=== PATIENT | female | born 1990 | race Caucasian/White ===

== ENCOUNTER 2023-10-25 19:43 | Emergency (ER) | payer BC, MEDICAID, SELFPAY ==
[2023-10-25 19:50] VITALS: BP 144/93; PULSE 85; RESP 17; TEMP 36.4; O2SAT 99; BMI 35.4
--- NOTE | 2023-10-25 20:01 | XRR_ITS ---
PROCEDURE INFORMATION: Exam: XR Chest Exam date and time: 10/25/2023 8:36 PM Age: 32 years old Clinical indication: Shortness of breath; Additional info: Shortness of brath TECHNIQUE: Imaging protocol: Radiologic exam of the chest. Views: 1 view. COMPARISON: No relevant prior studies available. FINDINGS: Lungs: Unremarkable. No consolidation. Pleural spaces: Unremarkable. No pleural effusion. No pneumothorax. Heart/Mediastinum: Unremarkable. No cardiomegaly. Bones/joints: Unremarkable. XR/XR chest 1V [id number] IMPRESSION: No acute findings.
[2023-10-25 20:02] VITALS: BP 127/93; BP 149/105; BP 157/103; PULSE 106; PULSE 130; PULSE 78
[2023-10-25 20:22] LABS: Basophils % 0.4 %; Eosinophils # 0.2 10^3/uL (0.0-0.8); Eosinophils % 1.5 %; Hematocrit 40.4 % (36-47); Lymphocytes # 4.1 10^3/uL (0.8-4.8); Lymphocytes % 39.1 %; Mean Corpuscular HGB Conc 34.7 g/dL (30-55); Mean Corpuscular Hemoglobin 31.5 pg (27-33); Mean Platelet Volume 9.3 fL (7.4-10.4); Monocytes # 0.7 10^3/uL (0.2-0.9); Monocytes % 6.9 %; Neutrophils # 5.37 10^3/uL (1.8-7.7); Neutrophils % 51.9 %; Nucleated Red Blood Cells % 0 %; Platelet Count 339 10^3/cmm (157-399); Red Blood Count 4.44 10^6/uL (3.85-5.65); Red Cell Distribution Width 12.2 % (12.1-15.1); White Blood Count 10.36 10^3/uL (3.29-11.43)
--- NOTE | 2023-10-25 20:29 | W.ED.SOB ---
HPI - SOB/Dyspnea General: Chief Complaint: Shortness of Breath/Dyspnea Stated Complaint: left jaw pain, sob, chest pains, nausea Time Seen by Provider: 10/25/23 19:56 History of Present Illness: HPI Narrative: 32-year-old female with history of anxiety and depression who presents to the emergency room with positional tachycardia and shortness of breath. She was worked up at [facility] and was told it might be her anxiety or a GI source. She says when she stands up her heart rate gets fast that she gets very short of breath. No fevers. No cough. Review of Systems Narrative: Constitutional symptoms: Negative except as documented in HPI. Skin symptoms: Negative except as documented in HPI. Eye symptoms: Negative except as documented in HPI. ENMT symptoms: Negative except as documented in HPI. Respiratory symptoms: Negative except as documented in HPI. Cardiovascular symptoms: Negative except as documented in HPI. Gastrointestinal symptoms: Negative except as documented in HPI. Genitourinary symptoms: Negative except as documented in HPI. Musculoskeletal symptoms: Negative except as documented in HPI. Neurologic symptoms: Negative except as documented in HPI. Psychiatric symptoms: Negative except as documented in HPI. Endocrine symptoms: Negative except as documented in HPI. [facility] ED PFSH: Medical History SVT (supraventricular tachycardia) Family History Other Cancer Diabetes Physical Exam Narrative: EXAM NARRATIVE: General: Alert, no acute distress. Skin: Warm, dry. Head: Normocephalic, atraumatic. Neck: Supple, trachea midline. Eye: Extraocular movements are intact. Ears, nose, mouth and throat: mucosa moist. Cardiovascular: Regular, Normal peripheral perfusion. Respiratory: Lungs are clear to auscultation, respirations are non-labored, breath sounds are equal, Symmetrical chest wall expansion. Gastrointestinal: Soft, Nontender, Non distended, Normal bowel sounds. Musculoskeletal: Normal ROM, no deformity. Neurological: Alert and oriented to person, place, time, and situation, No focal neurological deficit observed. Psychiatric: Cooperative, appropriate mood & affect. Course Vital Signs: Vital signs: Vital Signs Temperature 97.6 F 10/25/23 19:50 Pulse Rate 71 10/25/23 21:23 Respiratory Rate 15 10/25/23 21:23 Blood Pressure 100/83 10/25/23 21:23 Pulse Oximetry 98 10/25/23 21:23 Oxygen Delivery Me thod Room Air 10/25/23 20:54 MDM - SOB/Dyspnea Medical Decision Making Orthostatic vital signs were ordered as this sounds to be orthostasis. I reviewed lab work from [place]. Troponin was negative there. Her D-dimer was negative as well. So they have ruled out acute coronary syndrome although I did order a repeat troponin here. Also ruled out pulmonary embolism so we will not investigate that further. Her orthostatics are positive here. An liter of fluid was given. We discussed the findings at length and although there may be some component of anxiety I think mostly this is orthostasis. Lab Data 10/25/23 20:09 10/25/23 20:09 Labs/Radiology: Radiology Impressions Chest X-Ray 10/25/23 20:01 IMPRESSION: No acute findings. Laboratory Results WBC 10.36 10^3/uL (3.29-11.43) 10/25/23 20:09 RBC 4.44 10^6/uL (3.85-5.65) 10/25/23 20:09 Hgb 14.00 g/dL (11.27-16.99) 10/25/23 20:09 Hct 40.4 % (36-47) 10/25/23 20:09 MCV 91.0 fl (85-98) 10/25/23 20:09 MCH 31.5 pg (27-33) 10/25/23 20:09 MCHC 34.7 g/dL (30-55) 10/25/23 20:09 RDW 12.2 % (12.1-15.1) 10/25/23 20:09 Plt Count 339 10^3/cmm (157-399) 10/25/23 20:09 MPV 9.3 fL (7.4-10.4) 10/25/23 20:09 Neut % (Auto) 51.9 % 10/25/23 20:09 Lymph % (Auto) 39.1 % 10/25/23 20:09 Bryan % (Auto) 6.9 % 10/25/23 20:09 Eos % (Auto) 1.5 % 10/25/23 20:09 Baso % (Auto) 0.4 % 10/25/23 20:09 Neut # (Auto) 5.37 10^3/uL (1.8-7.7) 10/25/23 20:09 Lymph # (Auto) 4.1 10^3/uL (0.8-4.8) 10/25/23 20:09 Bryan # (Auto) 0.7 10^3/uL (0.2-0.9) 10/25/23 20:09 Eos # (Auto) 0.2 10^3/uL (0.0-0.8) 10/25/23 20:09 Baso # (Auto) 0.0 10^3/uL (0.0-0.1) 10/25/23 20:09 Nucleated RBC % (auto) 0 % 10/25/23 20:09 Nucleated RBCs # 0.0 /100WBC 10/25/23 20:09 Specimen Type Arterial 10/25/23 20:52 Sample Site Radial, right 10/25/23 20:52 ABG pH 7.48 (7.35-7.45) H 10/25/23 20:52 ABG pCO2 30.6 mmHg (35-45) L 10/25/23 20:52 ABG pO2 82.4 mmHg (80.0-100.0) 10/25/23 20:52 ABG HCO3 22.7 mmol/L (22-26) 10/25/23 20:52 ABG O2 Saturation 98.1 10/25/23 20:52 ABG Base Excess 0.0 mmol/L (-2.0-2.0) 10/25/23 20:52 Pietro Test Pos 10/25/23 20:52 A-a O2 Gradient 3.8 mmHg (5-10) L 10/25/23 20:52 Hematocrit 42.1 % (37-47) 10/25/23 20:52 Hgb O2 Saturation 91.2 % (95-100) L 10/25/23 20:52 Carboxyhemoglobin 6.6 %THgb (0.4-20.1) 10/25/23 20:52 Methemoglobin 0.5 % (0.4-1.5) 10/25/23 20:52 Total Hemoglobin 13.7 g/dL (12-16) 10/25/23 20:52 Sodium 140.0 mmol/L (131-143) 10/25/23 20:52 Potassium 3.6 mmol/L (3.5-5.0) 10/25/23 20:52 Glucose 84.0 mg/dL (70-115) 10/25/23 20:52 Ionized Calcium 1.2 mmol/L (1.1-1.4) 10/25/23 20:52 O2 Delivery Device Room air 10/25/23 20:52 Control Room Operator ID [email or web address] 10/25/23 20:52 Sodium 138 mmol/L (136-145) 10/25/23 20:09 Potassium 3.9 mmol/L (3.5-5.1) 10/25/23 20:09 Chloride 106 mmol/L (98-107) 10/25/23 20:09 Carbon Dioxide 22 mmol/L (22-29) 10/25/23 20:09 Anion Gap 13.9 (5-19) 10/25/23 20:09 BUN 9 mg/dL (6-20) 10/25/23 20:09 Creatinine 0.7 mg/dL (0.5-0.9) 10/25/23 20:09 GFR Calculation 97.0 mL/min (90-130) 10/25/23 20:09 Glucose 99 mg/dL (65-115) 10/25/23 20:09 Calculated Osmolality 285 mOsm/kg (285-295) 10/25/23 20:09 Calcium 9.8 mg/dL (8.5-10.5) 10/25/23 20:09 Total Bilirubin 0.3 mg/dL (0.15-1.2) 10/25/23 20:09 AST 25 U/L (0-32) 10/25/23 20:09 ALT 30 U/L (0-33) 10/25/23 20:09 Alkaline Phosphatase 71 U/L (35-105) 10/25/23 20:09 Troponin T Baseline < 6 ng/L (0-10) 10/25/23 20:09 C-Reactive Protein 3.6 mg/L (0.0-4.9) 10/25/23 20:09 Total Protein 6.3 g/dL (6.6-8.7) L 10/25/23 20:09 Albumin 4.0 g/dL (3.5-5.2) 10/25/23 20:09 Globulin 2.3 g/dL (1.3-4.6) 10/25/23 20:09 TSH 1.42 uIU/mL (0.27-4.20) 10/25/23 20:09 Influenza Type A Ag negative (Negative) 10/25/23 20:10 Influenza Type B Ag negative (Negative) 10/25/23 20:10 All radiology interpretation(s) finalized by discharge ED provider radiology interpretation(s): Chest x-ray: No acute process. No pneumothorax. No infiltrate. No cardiomegaly. This was reviewed and interpreted by myself the ER physician. EKG Data EKG 1: Other EKG Comments: EKG: Time 1948 PM rate 92 normal sinus rhythm, No ST-T changes, no ectopy, normal [place] & QRS intervals, This was reviewed and interpreted by myself the ER physician. Other Data - Likely orthostatic. Her heart rate does jump in the 130s when she stands up. Her blood pressure soft. Her hemoglobin is concentrated. TSH is within normal limits. Troponin is negative again here. Discharge Plan Discharge Patient Disposition: Home Clinical Impression: Orthostasis, Acute dehydration, Tachycardia Condition: Stable Prescriptions: No Action aspirin [Adult Aspirin Regimen] 81 mg tablet,delayed release (DR/EC) 81 mg PO DAILY metoprolol tartrate 25 mg tablet 12.5 mg PO BID Qty: 90 3RF cefdinir 300 mg capsule 300 mg PO Q12H lamotrigine [Lamictal] 100 mg tablet 100 mg PO DAILY duloxetine [Cymbalta] 60 mg capsule,delayed release(DR/EC) 60 mg PO BID prazosin 1 mg capsule 1 mg PO BID quetiapine [Seroquel] 50 mg tablet 50 mg PO DAILY clonazepam 1 mg tablet 1 mg PO DAILY Discharge Orders: Discharge ED (Routine); Ordered 10/25/23 Ordered By: Brenda Mathias Referrals: Chago Castellanos FNP [Primary Care Provider] - 4-7 days (You have been screened and evaluated and felt safe for discharge. Health conditions do change or evolve sometimes and as such it is important that you follow up with your Primary Doctor to be re checked, 3-5 days is a general good time frame for follow up. You are always welcome to return to the ED for re assessment if your symptoms are worsening or you have new concerns) Patient Instructions: Opioid Safety, Pain Management Coding Level of Care Code ED Customer Contact Sales Associate for Joao Prince
[2023-10-25 20:37] LABS: Influenza A by IFA negative (Negative); Influenza B by IFA negative (Negative)
[2023-10-25 20:39] LABS: Troponin(5th) Baseline < 6 ng/L (0-10)
[2023-10-25 20:46] LABS: Alanine Aminotransferase 30 U/L (0-33); Alkaline Phosphatase 71 U/L (35-105); Anion Gap 13.9 (5-19); Aspartate Amino Transferase 25 U/L (0-32); Blood Urea Nitrogen 9 mg/dL (6-20); C Reactive Protein 3.6 mg/L (0.0-4.9); Calcium 9.8 mg/dL (8.5-10.5); Carbon Dioxide 22 mmol/L (22-29); Chloride 106 mmol/L (98-107); Creatinine Clr Calc Pharmacy 123.3603; Globulin 2.3 g/dL (1.3-4.6); Glucose 99 mg/dL (65-115); Osmolality Calculated 285 mOsm/kg (285-295); Potassium 3.9 mmol/L (3.5-5.1); Sodium 138 mmol/L (136-145); Thyroid Stimulating Hormone 1.42 uIU/mL (0.27-4.20); Total Bilirubin 0.3 mg/dL (0.15-1.2); Total Protein 6.3 g/dL (6.6-8.7)
[2023-10-25] MEDS: sodium chloride 0.9% 1,000 ML 999 ML IV (20:49)
[2023-10-25 20:54] VITALS: BP 100/83; PULSE 78; RESP 26; O2SAT 96
[2023-10-25 21:03] LABS: ABG PCO2 30.6 mmHg (35-45); ABG PH Result 7.48 (7.35-7.45); Alveolar-Arterial Oxygen Gradi 3.8 mmHg (5-10); Arterial Blood Gas Hematocrit 42.1 % (37-47); Blood Gas Allen Test Pos; Blood Gas Sample Site Radial, right; Blood Gas Sample Type Arterial; Carboxyhemoglobin 6.6 %THgb (0.4-20.1); HCO3 ABG 22.7 mmol/L (22-26); HGB O2 Sat 91.2 % (95-100); Ionized Calcium Level - ABG 1.2 mmol/L (1.1-1.4); Methemoglobin 0.5 % (0.4-1.5); Oxygen Device ROOM AIR; Oxygen Saturation ABG 98.1; PO2 ABG 82.4 mmHg (80.0-100.0); Potassium Level - ABG 3.6 mmol/L (3.5-5.0); Total Hemoglobin 13.7 g/dL (12-16)
[2023-10-25 21:23] VITALS: BP 100/83; PULSE 71; RESP 15; O2SAT 98
[2023-10-25 22:03] LABS: Adenovirus Not Detected (NOT DETECT); Chlamydia Pneumoniae Not Detected (NOT DETECT); Coronavirus 229E,HKU1,NL63,OC4 Not Detected (NOT DETECT); Human Metapneumovirus Not Detected (NOT DETECT); Human Rhinovirus/Enterovirus Not Detected (NOT DETECT); Influenza A Not Detected (NOT DETECT); Influenza A H1 Not Detected (NOT DETECT); Influenza A H1-2009 Not Detected (NOT DETECT); Influenza A H3 Not Detected (NOT DETECT); Influenza B Not Detected (NOT DETECT); Mycoplasma Pneumoniae Not Detected (NOT DETECT); Parainfluenza Virus Type 1 Not Detected (NOT DETECT); Parainfluenza Virus Type 2 Not Detected (NOT DETECT); Parainfluenza Virus Type 3 Not Detected (NOT DETECT); Parainfluenza Virus Type 4 Not Detected (NOT DETECT); Respiratory Syncytial Virus A Not Detected (NOT DETECT); Respiratory Syncytial Virus B Not Detected (NOT DETECT); SARS-COV-2 Not Detected (NOT DETECT)
[2023-10-25 22:11] VITALS: BP 126/90; PULSE 66; RESP 14; O2SAT 99
== END 2023-10-25 22:11 | disposition home or self-care (01) ==
PROVIDERS: Emergency Provider Emergency Medicine; PCP Nurse Practitioner
DX: I95.1 Orthostatic hypotension (principal); R00.0 Tachycardia, unspecified; E86.0 Dehydration; Z79.82 Long term (current) use of aspirin; Z11.52 Encounter for screening for COVID-19
CPT/HCPCS: 36415; 36600; 71045; 80051; 80053; 82330; 82805; 84443; 84484; 85025; 86140; 87635; 87804; 99284; J7030

== ENCOUNTER → 2024-02-08 11:18 | Outpatient (BNVA) | payer BC, MEDICAID, SELFPAY | PROVIDERS: PCP Nurse Practitioner; Visit Provider Podiatrist Foot & Ankle Surgery | DX: M21.611 Bunion of right foot; M67.471 Ganglion, right ankle and foot; M79.671 Pain in right foot | CPT/HCPCS: 73630 ==

== ENCOUNTER 2025-07-04 13:09 | Outpatient (CLI) | payer MEDICAID, SELFPAY ==
--- NOTE | 2025-07-04 13:30 | US_ITS ---
WS: [id number] US pelvic complete* [id number] HISTORY: N94.6 - Dysmenorrhea, unspecified COMPARISON: 11/15/2006 Limited evaluation of the present adnexa due to patient discomfort. Uterus: 8.0 cm x 3.3 cm x 3.8 cm. Normal size anteverted uterus. No fibroid or mass. Endometrium: 0.3 cm. No abnormality identified but limited. Right ovary: RIGHT ovary is not identified. No adnexal mass. Left ovary: LEFT ovary is not definitely identified. No adnexal mass. No free fluid in the cul-de-sac. US/US pelvic complete* [id number] IMPRESSION: 1. Limited evaluation of the pelvic structures. 2. Normal uterus and endometrium. 3. Neither ovary is identified.
== END 2025-07-04 13:10 | disposition home or self-care (01) ==
LOC: RAD 13:11
PROVIDERS: PCP Nurse Practitioner; Visit Provider Nurse Practitioner Women's Health
DX: N94.6 Dysmenorrhea, unspecified (principal)
CPT/HCPCS: 76856

== ENCOUNTER → 2025-10-07 08:01 | Day surgery (SDC) | payer BC, MEDICAID, SELFPAY ==
[2025-10-07] VITALS (10 sets, daily range): BP systolic 113–168; BP diastolic 77–109; PULSE 93–124; RESP 14–20; TEMP 36.4–36.8; O2SAT 95–99; BMI 39.8
--- NOTE | 2025-10-07 04:56 | W.PM.OPSFHP ---
Same Day Surgery H&P Indication for Procedure/HPI DATE OF PROCEDURE: October 07, 2025 CHIEF COMPLAINT/INDICATIONFOR SURGICAL PROCEDURE: heavy menstrual bleeding PREOP DIAGNOSIS: menorrhagia PLANNED PROCEDURE: Operation Date: 10/07/25 09:45 Proposed Procedures p Hysteroscopy w/ Endometrial Sampling [id number] N94.6(Not Applicable) - Narciso Goznales MD s POSSIBLE Poylpectomy(Not Applicable) - Narciso Gonzales MD s Endometrial Ablation(Not Applicable) - Narciso Gonzales MD Medications/Allergies* Home Medications ?Medication ?Instructions ?Recorded ?Confirmed ?Type aripiprazole 10 mg tablet (Abilify) 10 mg PO DAILY 06/16/25 10/06/25 History buspirone 5 mg tablet 15 mg PO BID 06/16/25 10/06/25 History dextroamphetamine-amphetamine 20 20 mg PO BID 06/16/25 10/06/25 History mg tablet guanfacine 2 mg tablet,extended 2 mg PO BEDTIME 06/16/25 10/06/25 History release 24 hr prazosin 1 mg capsule 1 mg PO BEDTIME 06/16/25 10/06/25 History amitriptyline 10 mg tablet 20 mg PO BEDTIME 08/06/25 10/06/25 History Allergies/Adverse Reactions Allergy/AdvReac Type Severity Reaction Status Date / Time No Known Allergies Allergy Verified 10/06/25 11:13 Pertinent History/Comorbid Conditions* Medical History (Updated 06/25/25 @ 10:09 by Kate Schmid NP) Hx of chest pain Dyslipidemia Hypertriglyceridemia Hx of coronary artery disease History of palpitations Hx of suicide attempt Hx of scoliosis History of marijuana use Hx of bipolar disorder Hx of carpal tunnel syndrome History of anxiety History of depression Hx of migraine headaches Family history of myocardial infarction SVT (supraventricular tachycardia) Surgical History (Updated 06/25/25 @ 10:09 by Kate Schmid NP) History of left knee surgery History of tubal ligation 2013 History of meniscectomy of left knee Family History (Updated 06/16/25 @ 10:15 by Karley Farooq) Colon cancer Grandmother Diabetes Mother Heart disease Father Hyperlipidemia Mother Breast cancer Grandmother Cancer Hypertension Mother Father Social History Smoking and tobacco/nicotine status: current every day tobacco/nicotine user Pertinent Exam Findings alert, oriented x 3, clear to auscultation bilaterally and regular rate & rhythm Recommendations Surgery/Procedure today Coding Level of Care Code Acute Code for Chg Fwd
[2025-10-07 08:17] LABS: OR HCG Qualitative Urine Negative (Negative)
--- NOTE | 2025-10-07 09:32 | ANES.PREANE2 ---
Pre-Anesthetic Assessment Height/Weight: Height 5 ft 3 in Weight 225 lb Temp Pulse Resp BP Pulse Ox O2 Del Method 98.1 F 95 16 113/77 99 Room Air 10/07/25 09:17 10/07/25 09:17 10/07/25 09:17 10/07/25 09:17 10/07/25 09:17 10/07/25 09:17 Preop Diagnosis: menorrhagia Operation Date: 10/07/25 09:45 Proposed Procedures p Hysteroscopy w/ Endometrial Sampling [id number] N94.6(Not Applicable) - Narciso Gonzales MD s POSSIBLE Poylpectomy(Not Applicable) - Narciso Gonzales MD s Endometrial Ablation(Not Applicable) - Narciso Gonzales MD Was Beta James taken within 24 hours: N/A Was Clonidine taken within 24 hours: N/A Last intake: Intake Last Liquid Date 10/06/25 Last Liquid Time 22:00 Last Solid Date 10/06/25 Last Solid Time 22:00 Social Tobacco and No alcohol Exam alert, oriented x 3, clear to auscultation bilaterally and regular rate & rhythm Airway Submandibular: within normal limits Cervical ROM: within normal limits Mallampati: Class III Dentition: full Anesthetic Plan ASA status: 3 Anesthesia: General Other: No prior issues with anesthesia NPO since yesterday evening History of SVT Smokes marijuana, smoked today hCG negative Plan for general anesthesia Medications/Allergies Home Medications ?Medication ?Instructions ?Recorded ?Confirmed ?Last Taken ?Type aripiprazole 10 mg tablet (Abilify) 10 mg PO DAILY 06/16/25 10/06/25 10/06/25 History buspirone 5 mg tablet 15 mg PO BID 06/16/25 10/06/25 10/06/25 History dextroamphetamine-amphetamine 20 20 mg PO BID 06/16/25 10/06/25 10/06/25 History mg tablet guanfacine 2 mg tablet,extended 2 mg PO BEDTIME 06/16/25 10/06/25 10/06/25 History release 24 hr prazosin 1 mg capsule 1 mg PO BEDTIME 06/16/25 10/06/25 10/06/25 History amitriptyline 10 mg tablet 20 mg PO BEDTIME 08/06/25 10/06/25 10/06/25 History Allergies Allergy/AdvReac Type Severity Reaction Status Date / Time No Known Allergies Allergy Verified 10/06/25 11:13 Current Medications Generic Name Dose Route Start Last Admin Trade Name Federica PRN Reason Stop Dose Admin Sodium Chloride 1,000 mls @ 30 mls/hr 10/07/25 08:15 10/07/25 09:00 Sodium Chloride 0.9% IV 10/08/25 08:14 30 mls/hr .Q24H SUZAN Administration PFSH Anesthesia Medical History Hx of chest pain Dyslipidemia Hypertriglyceridemia Hx of coronary artery disease History of palpitations Hx of suicide attempt Hx of scoliosis History of marijuana use Hx of bipolar disorder Hx of carpal tunnel syndrome History of anxiety History of depression Hx of migraine headaches Family history of myocardial infarction SVT (supraventricular tachycardia) Surgical History History of left knee surgery History of tubal ligation 2013 History of meniscectomy of left knee Family History Grandmother Breast cancer Colon cancer Mother Diabetes Hyperlipidemia Hypertension Father Heart disease Hypertension Other Cancer Social History Smoking and tobacco/nicotine status: current every day tobacco/nicotine user Female Reproductive History Date of last menstrual period: 09/09/25
--- NOTE | 2025-10-07 09:58 | W.PM.OPSUD ---
Surgery/Procedure H&P Update DATE OF PROCEDURE: October 07, 2025 DATE H&P PERFORMED: 08/06/25 H&P UPDATE INFORMATION: I have reviewed H&P completed within last 30 days, I have examined patient prior to procedure and No changes to prior documentation PREOP DIAGNOSIS: menorrhagia PLANNED PROCEDURE: Operation Date: 10/07/25 09:45 Proposed Procedures p Hysteroscopy w/ Endometrial Sampling [id number] N94.6(Not Applicable) - Narciso Gonzales MD s POSSIBLE Poylpectomy(Not Applicable) - Narciso Gonzales MD s Endometrial Ablation(Not Applicable) - Narciso Gonzales MD
[2025-10-07] MEDS: fentaNYL 50 mcg/mL INJ 2mL IVP (11:45)
--- NOTE | 2025-10-07 11:55 | PM.OP ---
Operative Report Date of procedure: October 07, 2025 Pre-op diagnosis: menorrhagia Post-op diagnosis: same Post-op findings: Normal endometrial cavity No endometrial polyps or fibroids moderate endometrial tissue Global endometrial ablation following procedure Intact endometrial cavity following ablation Procedure done: Hysteroscopy Curettage of uterus Endometrial ablation with Novasure device Implants: none Specimens removed/disposition: endometrial curettings Surgeon: Narciso Gonzales MD Anesthesia: MAC Estimated blood loss (mL): 0 Complications: none Findings: see above Condition: stable Disposition: PACU Brief History: 34 y.o. with history of heavy menstrual bleeding Procedure: The patient was taken to the OR and placed on the table. General endotracheal anesthesia was induced. The patient was then placed in dorsolithotomy position. The perineum were then prepped and draped in the usual fashion. A speculum was placed in the vagina. The anterior lip of the cervix was grasped with a sharp-toothed tenaculum. The uterus was sounded to 8 cm. The cervix was serially dilated with Hegar dilators. . A hysteroscope was placed into the endometrial cavity. The endometrial cavity was seen to be normal. There were no polyps or fibroids. There was moderate endometrial tissue. The hysteroscope was then removed. Endometrial curettage was done with a sharp curette. Endometrial tissue was sent to pathology. The Novasure device was then primed and inserted into the endometrial cavity. The cervical occlusion sleeve was advanced. Cavity integrity test was done. The device was activated for 60 seconds. The Novasure device was then removed. Repeat hysteroscopy showed an intact endometrial cavity with adequate global endometrial ablation. All instruments were then removed. The sharp-toothed tenaculum was removed. There was no bleeding from the endometrial cavity or cervix. The patient was then placed supine and awakened and taken to the PACU. Postop condition: stable EBL: 0 cc Sponge and instruments counts were normal x 2 Complications: none
--- NOTE | 2025-10-07 12:40 | ANE.PACU2 ---
Inpatient post-anesthesia follow up: Airway intact: Yes Vital signs: Temperature 97.6 F Pulse Rate 95 Respiratory Rate 16 Blood Pressure 130/90 Pulse Oximetry 96 Oxygen Delivery Me thod Room Air Oxygen Flow Rate 10 Fraction of Inspir ed Oxygen Hydration adequate: Yes Nausea and vomiting: No Pain level: 1 Mental status: Baseline
== END | disposition home or self-care (01) ==
PROVIDERS: PCP Nurse Practitioner; Visit Provider Obstetrics & Gynecology
PROC: 0UJD8ZZ Inspection of Uterus and Cervix, Via Natural or Artificial Opening Endoscopic (ICD-10-PCS; CPT 58555; principal; 2025-10-07 09:35)
PROC: (CPT 58999; 2025-10-07 09:35)
DX: N92.0 Excessive and frequent menstruation with regular cycle (principal); N84.0 Polyp of corpus uteri; E78.5 Hyperlipidemia, unspecified; I47.10 Supraventricular tachycardia, unspecified; I25.10 Atherosclerotic heart disease of native coronary artery without angina pectoris; F31.9 Bipolar disorder, unspecified; F41.8 Other specified anxiety disorders; Z82.49 Family history of ischemic heart disease and other diseases of the circulatory system; F17.200 Nicotine dependence, unspecified, uncomplicated; F12.90 Cannabis use, unspecified, uncomplicated
CPT/HCPCS: 58558; 36415; 81025; 88305; J1100; J1885; J2250; J2405; J2704; J3010; J3490; J7030